=== PATIENT | female | born 1960 | race Caucasian/White ===

== ENCOUNTER → 2017-01-07 | Outpatient (CLI) | payer BC | LOC: CT 10:00 | DX: F17.200 Nicotine dependence, unspecified, uncomplicated (principal) | CPT/HCPCS: G0297 ==

== ENCOUNTER → 2020-10-06 | Outpatient (CLI) | payer BC, OTHER | LOC: CT 10:00 | DX: F17.200 Nicotine dependence, unspecified, uncomplicated (principal); R91.8 Other nonspecific abnormal finding of lung field | CPT/HCPCS: 71250 ==

== ENCOUNTER → 2022-01-22 | Outpatient (CLI) | payer BC | LOC: KOH-I 01-15 13:30 | DX: F17.210 Nicotine dependence, cigarettes, uncomplicated (principal) | CPT/HCPCS: 71271 ==